=== PATIENT | female | born 1955 | race Caucasian/White ===

== ENCOUNTER → 2021-04-03 | Day surgery (SDC) | payer MEDICARE, OTHER ==
[~2021-04-03] MED LIST: DIPRIVAN 200 MG/20 ML IV ONE; Lactated Ringers 1,000 ML IV SCH
[2021-04-03 08:44] VITALS: BP 152/81; PULSE 69; O2SAT 97
--- NOTE | 2021-04-03 09:24 | OP ---
SURGERY DATE/TIME: 04/03/2021 0726 PREOPERATIVE DIAGNOSIS: Screening exam. POSTOPERATIVE DIAGNOSIS: Normal colon. PROCEDURE: Colonoscopy. SURGEON: Dr. Ortiz. ANESTHESIA: MAC. Medications given by anesthesia department. HISTORY: The patient is a 65-year-old white female presenting now for screening colonoscopy. She reports her last examination was 15 years ago. She has had no problems and is here for screening examination. The patient was appraised of the risks of the procedure including the risk of perforation, phlebitis, untoward reaction to medication, bleeding and missed lesions. The patient verbalized her understanding and desired to have the procedure performed. DESCRIPTION OF PROCEDURE: The patient was given the medications by the anesthesia department. She had continuous pulse oximetry, ECG monitoring, intermittent blood pressure monitoring and tidal CO2 monitoring during the examination. She is placed in the left lateral decubitus position. A digital rectal examination performed and revealed normal anal sphincter tone, no masses, small internal hemorrhoids were felt. The flexible Olympus pediatric colonoscope was used to intubate the rectum. A view of the colon was developed sequentially to the cecum. Upon insertion and withdrawal, including a retroflex view in the rectum, no mucosal lesions were encountered. The scope was removed from the patient who tolerated the procedure well and was sent back to OP recovery in good condition. The prep was noted to be fair.
== END ==
LOC: SDC 05:47
PROVIDERS: ATTEND Family Medicine
DX: Z12.11 Encounter for screening for malignant neoplasm of colon (principal)
CPT/HCPCS: J2704

== ENCOUNTER 2024-02-17 10:52 | Day surgery (SDC) | payer MEDICARE, OTHER ==
--- NOTE | 2024-02-17 10:44 | HP ---
HISTORY OF PRESENT ILLNESS: Increased reflux. Family history negative for esophageal cancer. Patient in need of upper endoscopy for evaluation. PAST MEDICAL HISTORY: Hyperlipidemia, reflux, history of endometrial cancer, history of hypertension. HOME MEDICATIONS: Ezetimibe, felodipine, lisinopril, famotidine, Prilosec. ALLERGIES: No known drug allergies. PAST SURGICAL HISTORY: Hysterectomy, in the past. SOCIAL HISTORY: No smoking or alcohol abuse. FAMILY HISTORY: Prostate cancer. REVIEW OF SYSTEMS: Twelve systems reviewed. No chest pain or palpitations. Other systems negative or noncontributory as above and per preadmission questionnaire. PHYSICAL EXAMINATION: GENERAL: Height 5 feet. BMI 28.3. No acute distress. HEENT: Sclerae nonicteric. Extraocular movements intact. NECK: No JVD. CHEST: Equal excursion, nonlabored breathing. CARDIOVASCULAR: Regular rate and rhythm. ABDOMEN: Soft. SKIN: Dry. EXTREMITIES: No cyanosis or edema. NEUROLOGIC: Alert and oriented. Moving extremities symmetrically. PSYCHIATRIC: Appropriate mood and affect. IMPRESSION: Increased reflux. Needs EGD for further evaluation of esophagus, gastritis, peptic ulcer disease, or other etiology. Shown the risk sheet, explained in detail but not limited to bleeding, infection, risk of bowel injury possibly requiring open procedure, risk of incomplete exam possibly requiring barium swallow, risk of misdiagnosis, possible need for other procedure or referral, risk of anesthesia and sedation but not limited to. Patient understands. Will continue medications for reflux, hypertension, hyperlipidemia otherwise. Will schedule outpatient under MAC anesthesia EGD, possible biopsy.
[2024-02-17 11:12] VITALS: RESP 16
[2024-02-17] MEDS ORDERED: DIPRIVAN 200 MG/20 ML IV ONE ×2 (13:09→13:23)
[2024-02-17 14:10] VITALS: BP 113/57; PULSE 57; TEMP 98.1; O2SAT 98
--- NOTE | 2024-02-18 16:49 | OP ---
SURGERY DATE/TIME: 02/17/2024 [id number] PREOPERATIVE DIAGNOSIS: Increased reflux, prior history of lap band placement according to the patient, ASA Class 2. POSTOPERATIVE DIAGNOSES: 1) Patulous dilated esophagus with large amount of food material limiting exam of esophagus proximal to the short pouch and gastric band. 2) Minimal gastritis or gastropathy. 3) Small gastric polyp. PROCEDURE: 1) Esophagogastroduodenoscopy; cold biopsy of the antrum for H pylori; cold biopsy of small gastric polyp. 2) Cold biopsy of gastroesophageal junction gastric side of some inflammation at the gastroesophageal junction of the short pouch of the stomach above the gastric band and the esophagus. 3) Very limited examination of the esophagus as it was full of food and dilated and patulous. SURGEON: Denis Villafana MD. ANESTHESIA: MAC. ESTIMATED BLOOD LOSS: Minimal. INDICATIONS: Consent was obtained. DESCRIPTION OF PROCEDURE AND FINDINGS: The patient was taken to the endoscopy room. MAC anesthesia induced after official time-out for planned procedure. Bite block positioned. Videogastroscope passed down the oropharynx through the esophagus. The majority of the esophagus was dilated and full of food material down to the GE junction. It seemed to be about 39 cm. There was a short pouch of the stomach above gastric band the patient said they had. Scope was easily passed through here into the more distal stomach. Small benign-appearing gastric polyp was removed. There was some gastric erythema in distal stomach. No signs of any gross ulcers. Cold biopsy taken to evaluate for H pylori. Otherwise, scope passed through around to the junction of the third and fourth portions of duodenum. The duodenum is grossly unremarkable. Scope was pulled back. Again, biopsies have been taken in the antrum as well as the gastric polyp removed. On retroflex, you could see the position of the band. Scope was straightened. There was a short pouch above the gastric band. No ulcers. There were a little bit more inflammatory changes, whether this is just normal variation or not, the gastric side of the GE junction was biopsied. The esophagus was very dilated and full of food, quite patulous and dilated, possibly a result of this lap band backing up over time but would defer this to the bariatric surgeon. Otherwise, the esophagus itself was limited. There was no obstructing mass and the esophagus itself was very dilated, distended, patulous esophagus with a large amount of food material. The scope was withdrawn. Findings discussed with family out in the waiting area. We will see her back in the office to discuss the biopsy results but she very well may need to follow up with the bariatric surgeon to decide whether it would be beneficial to remove this gastric band.
== END 2024-02-17 14:19 | disposition home or self-care (01) ==
LOC: SDC 10:52
PROVIDERS: ATTEND Surgery
DX: K29.70 Gastritis, unspecified, without bleeding (principal); K21.9 Gastro-esophageal reflux disease without esophagitis; Z98.84 Bariatric surgery status; K31.7 Polyp of stomach and duodenum
CPT/HCPCS: J2704